=== PATIENT | female | born 1965 | race Caucasian/White ===

== ENCOUNTER 2022-05-17 00:42 | Day surgery (SDC) | payer BC, SELFPAY ==
[2022-05-09 08:35] VITALS: BMI 25.2
--- NOTE | 2022-05-09 08:43 | PC.NURSE ---
Report to the Outpatient Waiting Room, entrance under the green pavilion located off [facility], at time 0615 on date 05/17/22. OR Time: 0815. - You and your visitor will be asked a series of questions to screen for COVID 19 for your protection. - Only one visitor is allowed at this time. - The patient visitor is requested to leave or wait in car when not with patient. - A mask is required within the hospital. Patients may have clear liquids (water, carbonated beverages, clear teas, apple juice) until 3 hours prior to surgery with a maximum of 20 ounces. - No food from midnight until time of surgery Take the following medications with a SIP of water the morning of surgery: NONE Medications to discontinue per physician: VITAMINS/SUPPLEMENTS Date to take last dose: HAS ALREADY STOPPED Please no make-up, nail lao, hairspray, perfume, deodorant, or body powder the day of surgery. No jewelry (including any body piercings) or valuables the day of surgery, leave them at home. Please take a shower or bath the night before, or the morning of, surgery with an antibacterial soap. Wear comfortable, loose fitting clothing. - Jewelry must be removed prior to entering the operating room. Rings and piercings that are not removed may be cut off. - The hospital will not accept responsibility for valuables. - Please leave all valuables, including medications, at home the day of surgery. If you are going home after surgery, a licensed wagon driver must drive you home. - NO public transportation without another adult. - We recommend that an adult stay with you for 24 hours following discharge. - We also recommend that you do not drive, make important decision, drink alcoholic beverages, or take any drugs that were not prescribed by your health care provider for at least 24 hours after your discharge time. Follow any additional instructions given to you from your surgeon. If you or anyone in your household have experienced Covid symptoms in the past week, please notify your surgeon or the nurse liaison at the phone number below for possible testing. Telephone instructions given to PT - JUVENAL BUI and asked if any additional questions and then verbalized understanding. Patient advised to call surgeon office or pre surgery nurse liaison [phone] if any additional questions.
--- NOTE | 2022-05-11 11:55 | P.HP_ITS ---
H&P: HPI History of Present Illness Date/Time: 05/11/22 11:55 Chief Complaint: pelvic organ prolapse Narrative: 56-year-old the rectocele. She has mild non bothersome cystocele. She has mild non bothersome stress incontinence Review of Systems Review of Systems: All systems reviewed & are unremarkable except as noted in HPI and below [facility] Social History Social History Smoking status: Never smoker Alcohol intake: current Drinks per week: 5 Substance use: never Substance use type: does not use Living arrangements: with family Spiritual care concerns: No Meds Home Medications and Allergies Home Medications Medication Instructions Recorded Confirmed Type estradiol 0.05 mg/24 hr semiweekly 1 patch transdermal 2XW 05/09/22 05/09/22 History transdermal patch multivitamin 1 tablet PO DAILY 05/09/22 05/09/22 History Allergies Allergy/AdvReac Type Severity Reaction Status Date / Time Penicillins Allergy Severe Anaphylaxis Verified 05/09/22 08:33 Exam Narrative: alert and oriented x3 normal breathing minimal cystocele rectocele to introitus Assessment and Plan Assessment and plan (1) Rectocele: Code(s): N81.6 - Rectocele Status: Acute Assessment and Plan: plan for vaginal repair of rectocele. Possible cystocele repair if for present under anesthesia than in the office. Does not desire surgery for stress incontinence. Understands risks of bleeding, infection, recurrence, damage to bowel or surrounding organs, fistula formation, voiding dysfunction, dyspareunia. She agrees to proceed
[2022-05-17] VITALS (7 sets, daily range): BP systolic 99–142; BP diastolic 58–99; PULSE 65–110; RESP 14–16; TEMP 36.4; O2SAT 96–100
[2022-05-17] MEDS: ACETAMINOPHEN 500 MG TABLET 1000 MG PO (07:09)
--- NOTE | 2022-05-17 07:13 | WPDHPUPDATE1 ---
History and Physical Update Update Date/Time: 05/17/22 07:13 History and Physical has been reviewed, including an updated exam of the patient. There are NO changes in the patient's condition. Risks, benefits, and alternatives have been discussed and questions answered. Patient agrees to proceed with procedure.
[2022-05-17] MEDS: KETOROLAC 15 MG/ML VIAL (*BKC) IV PUSH (07:18)
[2022-05-17] MEDS: LACTATED RINGERS 1,000 ML 30 ML IV CONT ×2 (07:30→10:03)
--- NOTE | 2022-05-17 07:35 | WPDANESEPPF ---
Anes - Initial Pre Proc Eval Procedure: Operation Date: 05/17/22 08:15 Proposed Procedures p Rectocele and Cystocele Repair - Feliciano Montero MD Date/Time: 05/17/22 07:35 Surgeon: Feliciano Montero MD Pre Op Diagnosis: Rectocele, Cystocele Patient Data Age: 56 Gender: F Height: 1.57 m Weight: 61.1 kg Last Vital Signs Temp 36.4 C L 05/17/22 06:52 Pulse 72 05/17/22 06:52 Resp 16 05/17/22 06:52 BP 125/70 05/17/22 06:52 Pulse Ox 100 05/17/22 06:52 O2 Del Method Room Air 05/17/22 06:52 Allergies Allergy/AdvReac Type Severity Reaction Status Date / Time Penicillins Allergy Severe Anaphylaxis Verified 05/17/22 07:06 Home Medications Medication Instructions Recorded Confirmed Type estradiol 0.05 mg/24 hr semiweekly 1 patch transdermal 2XW 05/09/22 05/17/22 History transdermal patch multivitamin 1 tablet PO DAILY 05/09/22 05/17/22 History Patient hx anesthesia problems: none Family hx anesthesia problems: none Results Review: All pre-operative results and documents have been reviewed as part of the pre-operative evaluation. [facility] Social History Social History Smoking status: Never smoker Alcohol intake: current Drinks per week: 5 Substance use: never Substance use type: does not use Living arrangements: with family Spiritual care concerns: No Anes - Eval Final PreProcedure Day of Procedure 05/17/22 07:35 Patient weight: normal Heart: regular rate and rhythm Lungs: clear to auscultation Airway: Mallampati scale class 1 Neurological: alert and oriented Last oral intake: >/= 8 hours ASA classification: I Emergent: no Anesthetic plan: proceed Anesthesia type and monitoring: general LMA and standard monitoring Results Review: All pre-operative results and documents have been reviewed as part of the pre-operative evaluation. Informed Consent: The patient's anesthetic plan and its attendant risks and benefits were discussed with the patient/family/POA. Questions were solicited and answers provided to the satisfaction of the patient/family/POA.
[2022-05-17] MEDS: ceFAZolin 2 GM/D5W 50 ML 2 GM/50 ML BAG IVPB (08:27)
[2022-05-17] MEDS: ceFAZolin SODIUM 1 GM VIAL (08:50)
[2022-05-17] MEDS: LIDO 2%/EPINEPHRINE 1:100,000 20 ML VIAL INFILTRATE (08:51)
--- NOTE | 2022-05-17 09:44 | P.OP_ITS ---
Procedure Note - Detailed Date of Procedure 05/17/22 Pre-op Diagnosis Rectocele, Cystocele, female perineal laxity Post-op Diagnosis Same Procedure Performed Rectocele repair Cystocele repair Perineorrhaphy Cystoscopy Surgeon Feliciano Montero MD Anesthesia General Findings Cystocele, rectocele, perineal laxity, normal cystoscopy Description of Procedure She presents today for the above procedure. She understands risks of bleeding, infection, damage to the bladder rectum, fistula formation, dyspareunia, recurrence of prolapse, worsening incontinence, hip and leg pain. She agrees to proceed She was correctly identified. Informed consent obtained. She from the operating room. She was given general anesthesia. She was prepped and draped sterile fashion. She was given appropriate perioperative antibiotics. Time-out performed. Placed a Ariza catheter. I placed a [place] retractor. Examination revealed a rectocele to the introitus and a bit beyond the introitus. She had perineal laxity. She has cystocele just beyond the hymenal ring. I grasped the rectocele with Allis clamps. I infiltrated the subcutaneous tissues with local mixed with saline. I made a midline vaginal incision. I dissected the rectocele off the mucosa. I did this laterally and back to the apex. We used a combination of sharp dissection and blunt dissection. I then performed a standard plication rectocele repair using interrupted sutures of 0 Vicryl suture. I took great care not to injure underlying structures such as the rectum. I reduced the rectocele using these interrupted sutures. I trimmed excess vaginal mucosa. I closed the vaginal mucosa with a running 2-0 Vicryl suture resulting in excellent rectocele support. She had a degree of cystocele just beyond the hymenal ring. I grasped the cystocele with Allis clamps. I infiltrated subcutaneous tissues with local anesthesia mix with saline. I made a midline vaginal incision on the anterior vaginal wall. I dissected the mucosa off the underlying fascial structures laterally and to the apex. I did this taking great care not to injure the bladder. I then performed plication cystocele repair with 0 Vicryl sutures. Again taking great care not to injure the bladder. This reduced the cystocele. I trimmed excess vaginal mucosa. I closed the vaginal close the running 2-0 Vicryl suture. There was excellent support of the cystocele and rectocele. There was no undue narrowing of the vagina. I then matilda out a margo-shaped area of skin on the perineum. I anesthetized this area of skin and removed it. I performed a perineorrhaphy with 0 Vicryl sutures. I used a 2 0 Vicryl to close the mucosa. This resulted in excellent perineal support again without undue narrowing of the vagina. There was excellent hemostasis no packing was required On cystoscopy she had mild trabeculations. There is no artifact in the bladder or urethra. There is no tumors or signs of bladder injury. Both ureters were seen to excrete clear yellow urine. I left her bladder partially full. She was awakened transferred to PACU in stable condition Implants None Estimated Blood Loss 10 Drains No Packing No Pathology None sent Complications None Condition Stable Disposition PACU
== END 2022-05-17 11:25 | disposition home or self-care (01) ==
PROVIDERS: PCP Family Medicine; Visit Provider Urology
PROC: (CPT 57260; principal; 2022-05-17 08:15)
DX: N81.4 Uterovaginal prolapse, unspecified (principal); N39.3 Stress incontinence (female) (male)
CPT/HCPCS: 57260; A9270; J0690; J1100; J1885; J2250; J2405; J2704; J3010; J7030; J7120